=== PATIENT | male | born 1980 | race African-American/Black ===

== ENCOUNTER 2016-04-07 19:06 | Emergency (ER) | payer BC ==
[~2016-04-07] VITALS: Ht 175.3 cm; Wt 104.8 kg
[2016-04-07 19:13] VITALS: BP 144/85
[2016-04-07] MEDS ORDERED: COLACE100 MG PO (20:54)
[2016-04-07] MEDS ORDERED: ULTRAM50 MG PO (20:54)
[2016-04-07] MEDS ORDERED: ANUSOL-HC21 GM PR (20:54)
== END 2016-04-07 21:39 | disposition home or self-care (01) ==
LOC: EME 19:06
DX: K64.9 Unspecified hemorrhoids (principal)
CPT/HCPCS: 99281; 99284

== ENCOUNTER 2016-04-12 05:28 | Emergency (ER) | payer BC ==
[~2016-04-12] VITALS: Ht 175.3 cm; Wt 104.7 kg
[~2016-04-12 05:28] MED LIST: ANUSOL-HC21 GM PR; COLACE100 MG PO; ULTRAM50 MG PO
[2016-04-12] MEDS ORDERED: ANUSOL-HC21 GM PR (06:48)
[2016-04-12] MEDS ORDERED: MIRALAX255 GM PO (06:48)
[2016-04-12 07:34] VITALS: BP 129/83
== END 2016-04-12 07:39 | disposition home or self-care (01) ==
LOC: EME 05:28
DX: K64.4 Residual hemorrhoidal skin tags (principal)
CPT/HCPCS: 99281; 99284; J2250; J3010; J7030

== ENCOUNTER 2016-07-25 05:42 | Emergency (ER) | payer BC ==
[~2016-07-25] VITALS: Ht 172.7 cm; Wt 107.1 kg
[~2016-07-25 05:42] MED LIST changes: +MIRALAX255 GM PO
[2016-07-25 07:22] LABS: INFLUENZA A VIRAL ANTIGEN NEGATIVE; INFLUENZA B VIRAL ANTIGEN NEGATIVE
[2016-07-25 07:38] LABS: ADD MIUA? YES; BILIRUBIN NEGATIVE; BLOOD MODERATE; COLOR YELLOW ((YELLOW)); GLUCOSE (STRIP) NEGATIVE; KETONES NEGATIVE; LEUKOCYTES NEGATIVE; NITRITE NEGATIVE; PROTEIN (STRIP) 30; SPECIFIC GRAVITY 1.024 (1.000-1.030); UROBILINOGEN 0.2 MG/DL (0.2-1.0)
[2016-07-25 07:40] LABS: CHLORIDE 101 mEq/L (99-109); POTASSIUM 4.2 mEq/L (3.7-5.4); SODIUM 137 mEq/L (136-147)
[2016-07-25 07:41] LABS: GLUCOSE 125 mg/dL (70-99)
[2016-07-25 07:43] LABS: ANION GAP 13 MEQ/L (2-14)
[2016-07-25 07:45] LABS: GFR ESTIMATE (CALCULATED) > 59 mL/min/
[2016-07-25 07:46] LABS: UREA NITROGEN (BUN) 10 mg/dL (9-23)
[2016-07-25 08:01] LABS: BACTERIA RARE /HPF; EPITHELIAL CELLS NONE SEEN /HPF; HYALINE CASTS 0-5 /LPF; MUCUS 1+ /LPF; WHITE BLOOD CELLS 0-5 /HPF (0-5)
[2016-07-25 08:41] LABS: EOSINOPHIL (%) 1.6 % (0-5); EOSINOPHIL COUNT 0.1 K/uL (0-0.3); HEMATOCRIT 46.6 % (38.0-50.0); IMMATURE GRANULOCYTE (%) 0.6 % (0.0-0.7); LYMPHOCYTE COUNT 1.4 K/uL (1.0-2.8); MCH 32.9 PG (29.0-34.0); MCHC 34.5 G/DL (30.0-36.0); MCV 95.3 FL (86-99); MEAN PLAT.VOLUME 10.7 uM^3 (9.0-12.4); MONOCYTE COUNT 0.6 K/uL (0-0.8); NEUTROPHIL (%) 58.5 % (45-76); PLATELET COUNT 156 K/uL (156-360); RBC DIS.WIDTH-CV 10.8 % (11.8-14.6); RBC DIS.WIDTH-SD 38.2 % (39-53); RED BLOOD COUNT 4.89 M/uL (4.00-5.50); WHITE BLOOD COUNT 5.2 K/uL (4.1-10.2)
[2016-07-25] MEDS ORDERED: TYLENOL WITH C1 EACH PO (10:55)
[2016-07-25 11:01] VITALS: BP 115/99
== END 2016-07-25 11:10 | disposition home or self-care (01) ==
LOC: EME 05:42
PROVIDERS: Emergency Medicine
DX: B34.9 Viral infection, unspecified (principal); R10.9 Unspecified abdominal pain
CPT/HCPCS: 71020; 74176; 80048; 81003; 85025; 85025 91; 87502; 99281; 99285; J7030

== ENCOUNTER 2016-11-20 11:39 | Inpatient (IN) | payer BC ==
[~2016-11-20] VITALS: Ht 172.7 cm; Wt 101.7 kg
[~2016-11-20 11:39] MED LIST changes: +TYLENOL WITH C1 EACH PO
[2016-11-20 12:11] LABS: HEMATOCRIT 42.3 % (38.0-50.0); MCH 33.2 PG (29.0-34.0); MCV 94.8 FL (86-99); MEAN PLAT.VOLUME 11.5 uM^3 (9.0-12.4); PLATELET COUNT 161 K/uL (156-360); RBC DIS.WIDTH-CV 11.3 % (11.8-14.6); RBC DIS.WIDTH-SD 39.1 % (39-53); RED BLOOD COUNT 4.46 M/uL (4.00-5.50); WHITE BLOOD COUNT 11.2 K/uL (4.1-10.2)
[2016-11-20 12:21] LABS: CHLORIDE 104 mEq/L (99-109); POTASSIUM 5.5 mEq/L (3.7-5.4); SODIUM 136 mEq/L (136-147)
[2016-11-20 12:23] LABS: GLUCOSE 101 mg/dL (70-99)
[2016-11-20 12:25] LABS: ANION GAP 10 MEQ/L (2-14)
[2016-11-20 12:28] LABS: GFR ESTIMATE (CALCULATED) > 59 mL/min/; UREA NITROGEN (BUN) 8 mg/dL (9-23)
[2016-11-20 16:13] VITALS: BP 148/76
[2016-11-20 16:24] LABS: INFLUENZA A VIRAL ANTIGEN NEGATIVE; INFLUENZA B VIRAL ANTIGEN NEGATIVE
[2016-11-20 23:45] VITALS: BP 144/68
[2016-11-21 03:47] VITALS: BP 122/57
[2016-11-21 06:37] LABS: MCH 33.7 PG (29.0-34.0); MCV 96.2 FL (86-99); MEAN PLAT.VOLUME 11.1 uM^3 (9.0-12.4); PLATELET COUNT 189 K/uL (156-360); RBC DIS.WIDTH-CV 11.1 % (11.8-14.6); RBC DIS.WIDTH-SD 39.5 % (39-53); RED BLOOD COUNT 4.16 M/uL (4.00-5.50); WHITE BLOOD COUNT 11.2 K/uL (4.1-10.2)
[2016-11-21 07:11] LABS: ANION GAP 11 MEQ/L (2-14); CHLORIDE 102 MEQ/L (99-109); GFR ESTIMATE (CALCULATED) > 59 mL/min/; GLUCOSE 170 mg/dL (70-99); POTASSIUM 4.3 MEQ/L (3.7-5.4); SAMPLE HEMOLYSIS CHECK 0; SAMPLE ICTERIC CHECK 0; SAMPLE LIPEMIA CHECK 0; SODIUM 138 MEQ/L (136-147); UREA NITROGEN (BUN) 8 mg/dL (9-23)
[2016-11-21 07:57] VITALS: BP 171/86
[2016-11-21 15:22] VITALS: BP 115/69
[2016-11-21 19:34] VITALS: BP 130/65
[2016-11-21 23:39] VITALS: BP 134/66
[2016-11-22 03:31] VITALS: BP 131/60
[2016-11-22 08:21] VITALS: BP 151/67
[2016-11-22 11:00] VITALS: BP 144/77
[2016-11-22] MEDS ORDERED: FLONASE16 G1 BOTH NARES (15:33)
[2016-11-22] MEDS ORDERED: VENTOLIN HFA18 GM IH (15:34)
[2016-11-22] MEDS ORDERED: ROBITUSSIN DM118 ML PO (15:37)
[2016-11-22] MEDS ORDERED: PREDNISONE10 MG PO (15:38)
[2016-11-22 16:00] VITALS: BP 141/81
== END 2016-11-22 17:49 | disposition home or self-care (01) | DRG 202 ==
LOC: EME 11:39 → EDOF 14:01 → 5SOUTH 14:01 → EDOF 14:21 → ENRESERV 14:21 → 5SOUTH 15:50
PROVIDERS: Hospitalist
DX: J45.21 Mild intermittent asthma with (acute) exacerbation (principal); J96.01 Acute respiratory failure with hypoxia; E87.5 Hyperkalemia; J20.9 Acute bronchitis, unspecified; E11.9 Type 2 diabetes mellitus without complications; R10.9 Unspecified abdominal pain; E66.9 Obesity, unspecified; Z68.34 Body mass index [BMI] 34.0-34.9, adult; F17.290 Nicotine dependence, other tobacco product, uncomplicated
CPT/HCPCS: 71020; 80048; 83605; 85027; 85379; 87040; 87502; 94640; 94640 76; 94799; 99202; 99281; 99285; J0696; J1644; J2930; J3475; J7050